=== PATIENT | female | born 1985 | race Caucasian/White ===

== ENCOUNTER 2020-09-18 11:54 | Inpatient (IN) ==
[2020-09-18] MEDS ORDERED: OXYTOCIN 30 UNITS/500 ML BAG IV PRN ×3 (12:43→18:46)
[2020-09-18] MEDS: LACTATED RINGER'S 1,000 ML IV PRN ×2 (12:50→13:47)
--- NOTE | 2020-09-18 13:10 | History & Physical Report ---
Date of Service September 18, 2020 Assessment & Plan (1) Uterine contractions at greater than 20 weeks of gestation: 34 yo at 40.4 wks with contractions, cervical change VSS afebrile FHR reassuring GBS neg, Coronavirus neg Plan to admit, monitor, epidural for pain Admission and Anticipated Discharge Date Admission Date: September 18, 2020 History of Present Illness Chief Complaint: Contractions Primary Care Provider: NO PCP Patient is a 34 yo at 40.4 wks who has been feeling ctxs since 230 am, got closer and regular, every 2-5 minutes and more painful. No LOF/VB FM's GBS neg Coronavirus neg Her has been complicated by GDMA1, diet controlled Chronic migraines, nerve block injections q 3 months Allergies Allergy/AdvReac Type Severity Reaction Status Date / Time No Known Drug Allergies Allergy Unknown Verified 09/18/20 05:15 Home Medications Medication Instructions Recorded Confirmed Type ondansetron HCl 8 mg tablet 8 mg PO DAILY PRN tab 11/04/19 09/18/20 History prenat.vits,rafy,hjg-[id number]-nfzla 1 tab PO DAILY 05/04/20 09/18/20 History multivitamin with iron 1 tab PO DAILY 08/04/20 09/18/20 History ferrous sulfate [Iron (ferrous 325 mg PO BID 09/18/20 09/18/20 History sulfate)] Patient History Medical History History of chicken pox History of syncope Migraines Surgical History H/O oral surgery History of surgical procedure bilateral supraorbital, supratrochlear, auriculotemporal, lesser occipital and greater occipital nerve block S/P breast reconstruction, bilateral with implant prosthesis Family History Grandfather (Paternal) Colorectal cancer Mother Osteopenia Pure hypercholesterolemia Social History Smoking Status: Never smoker Second Hand Exposure: No; Hx Alcohol Use: No Hx Substance Use: No Preferred Language: Icelandic Communication Ability: Effective Aging Box Hand Required: No Beliefs That Will Affect Care: None marital status: Current Living Situation: Spouse current occupational status: other current occupation: self employed Other Information That Helps Us Care for You: No Feels Safe at Home: Yes Safety Concerns: Feels Safe At This Time Assistive Devices: None [employer] PERSON History No h/o STD's Review of Systems All systems reviewed & are unremarkable except as noted in HPI & below Physical Exam Constitutional: WD/WN, vitals as above well developed, well nourished and + acute distress (with ctxs) Genitourinary: normal external appearance OB Exam Abdomen: + vertex Manual OB Exam: + cervical dilation 4 cm and + cervical effacement 80% OB Exam Monitor Tracing: + category I Results & Data ([facility]) Vital Signs (Past 12 Hours) Vital Signs Temp Pulse Resp BP 09/18/20 12:18 36.9 C 106 H 18 131/78 09/18/20 12:11 106 H 131/78
[2020-09-18 13:22] LABS: Hematocrit (blood only) 36.2 % (37-47); Hemoglobin 11.9 g/dL (12.0-16.0); Mean Corpuscular Hemoglobin 29.8 pg (25-34); Mean Corpuscular Hgb Conc 32.9 g/dL (32-36); Mean Corpuscular Volume 90.5 fL (80-100); Mean Platelet Volume 10.6 fL (7.4-10.4); Platelet Count 339 K/uL (130-400); RDW Standard Deviation 50.2 fL (36.4-46.3); White Blood Count 10.11 K/uL (4.8-10.8)
[2020-09-18] MEDS ORDERED: SODIUM CHLORIDE 0.9% INJ 10 ML VIAL ONE (13:51)
[2020-09-18] MEDS ORDERED: fentaNYL 2MCG/ML ROPIVACAINE 1.25MG/ML 100 ML BAG EPI ONE (13:51)
[2020-09-18] MEDS ORDERED: BUPIVACAINE 0.25% 30 ML VIAL ONE (13:51)
[2020-09-18] MEDS ORDERED: fentaNYL citrate 100 MCG/2 ML VIAL ONE (13:51)
[2020-09-18] MEDS ORDERED: ePHEDrine sulfate 50 MG/ML AMP ONE (13:51)
--- NOTE | 2020-09-18 14:17 | Anesthesiology Consultation ---
Date of Service September 18, 2020 Assessment & Plan (1) Encounter for pre-operative examination: Chart Review Chart Review: Acceptable Risk for Surgery and Patient NOT seen in Pre Admission Testing Consults Requested none ASA ASA2 Proposed Anesthesia Anesthesia Type: Labor Epidural Risk / Benefits Reviewed With: PT / POA / Parent / Guardian, Accepts Plan and Informed Consent Obtained History Height/Weight Height: 5 ft 5 in Weight: 94.347 kg Allergies Allergy/AdvReac Type Severity Reaction Status Date / Time No Known Drug Allergies Allergy Unknown Verified 09/18/20 05:15 Medications Home Medications Medication Instructions Recorded Confirmed Last Taken ondansetron HCl 8 mg tablet 8 mg PO DAILY PRN tab 11/04/19 09/18/20 Unknown prenat.vits,rafy,esr-oens-dbeqj 1 tab PO DAILY 05/04/20 09/18/20 09/17/20 15:00 multivitamin with iron 1 tab PO DAILY 08/04/20 09/18/20 Unknown ferrous sulfate [Iron (ferrous 325 mg PO BID 09/18/20 09/18/20 09/17/20 21:00 sulfate)] Active Medications Generic Name Dose Route Start Last Admin Trade Name Freq PRN Reason Stop Dose Admin Lactated Ringer's 1,000 mls @ 125 mls/hr 09/18/20 12:43 09/18/20 13:47 Lr IV 09/20/20 12:42 125 mls/hr .Q8H PRN Administration L&D Protocol Protocol NPO Date Last Intake of Fluids: 09/18/20 Time Last Intake of Fluids: 14:16 Past Medical History Medical History History of chicken pox History of syncope Migraines Exercise / Class Metabolic Activity II 4-5 Yardwork/Stairs/Walk up hill Past Family History Family History Grandfather (Paternal) Colorectal cancer Mother Osteopenia Pure hypercholesterolemia Past Surgical History Surgical History H/O oral surgery History of surgical procedure bilateral supraorbital, supratrochlear, auriculotemporal, lesser occipital and greater occipital nerve block S/P breast reconstruction, bilateral with implant prosthesis Social History Smoking Status: Never smoker Hx Alcohol Use: No Hx Substance Use: No substance use type: does not use Physical Exam Vital Signs Last Vital Signs Temp 36.9 C 09/18/20 12:18 Pulse 103 H 09/18/20 14:07 Resp 18 09/18/20 12:18 BP 130/84 09/18/20 14:07 Testing Laboratory Results 09/18/20 13:11
[2020-09-18] MEDS ORDERED: NALOXONE HCL 1 MG in SODIUM CHLORIDE 0.9% 1000ML 1,000 ML IV PRN (15:07)
[2020-09-18] MEDS ORDERED: ONDANSETRON INJ 2 MG/ML 2 ML VIAL IV PRN (15:07)
[2020-09-18] MEDS ORDERED: diphenhydrAMINE 50 MG/ML VIAL IV PRN (15:07)
[2020-09-18] MEDS ORDERED: NALOXONE HCL 0.4 MG/1 ML VIAL/CARP IV PRN (15:07)
[2020-09-18] MEDS ORDERED: fentaNYL 2MCG/ML ROPIVACAINE 1.25MG/ML 100 ML BAG EPI PRN (15:07)
[2020-09-18] MEDS ORDERED: ePHEDrine sulfate 50 MG/ML AMP IV PRN (15:07)
[2020-09-18] MEDS ORDERED: CALCIUM CARBONATE 500 MG CHEWABLE TAB PO PRN (16:24)
[2020-09-18] MEDS ORDERED: MINERAL OIL 30 ML UDC ONE (18:04)
[2020-09-18] MEDS ORDERED: LIDOCAINE HCL 1% 20 ML VIAL ONE ×2 (18:16→18:25)
[2020-09-18] MEDS ORDERED: ERYTHROMYCIN OP OINT 1 GM PKT ONE (18:26)
[2020-09-18] MEDS ORDERED: ceFAZolin 2000MG 2,000 MG/15 ML SYR IV STA (18:28)
[2020-09-18] MEDS ORDERED: bisacodyL 10 MG SUPP PR PRN (18:46)
[2020-09-18] MEDS ORDERED: BENZOCAINE 20% AER SPR 82.5 GM CAN EXT PRN (18:46)
[2020-09-18] MEDS ORDERED: HYDROCORTISONE ACETATE 25 MG SUPP PR PRN (18:46)
[2020-09-18] MEDS ORDERED: DIPHTHERIA/TETANUS/PERTUSSIS 0.5 ML SYR/VIAL IM ONE (18:46)
[2020-09-18] MEDS ORDERED: ACETAMINOPHEN 325 MG TAB PO PRN (18:46)
[2020-09-18] MEDS ORDERED: MEASLES, MUMPS & RUBELLA VIRUS VIAL SQ ONE (18:46)
[2020-09-18] MEDS ORDERED: SUPERCREAM 0.870% 15 GM JAR EXT PRN (18:46)
[2020-09-18] MEDS ORDERED: oxyCODONE/ACETAMINOPHEN 5mg/325mg TAB PO PRN (18:46)
[2020-09-18] MEDS ORDERED: LACTATED RINGER'S 1,000 ML IV SCH (19:00)
--- NOTE | 2020-09-18 20:27 | Anesthesia Procedure Note ---
Date of Service September 18, 2020 Anesthesia Post Epidural Note Vital Signs Vital Signs: Temp Pulse Resp BP Pulse Ox 36.9 C 123 H 18 127/63 98 09/18/20 18:45 09/18/20 20:16 09/18/20 20:16 09/18/20 20:16 09/18/20 18:49 Notes Mental Status: alert / awake / arousable and participated in evaluation Nausea / Vomiting: adequately controlled Pain: adequately controlled Airway Patency, RR, SpO2: stable & adequate BP & HR: stable & adequate Hydration State: stable & adequate Neuraxial Anesthesia: was administered and sensory block is resolving Anesthetic Complications: no major complications apparent and Pt Satisfied with anesthetic care Epidural: Removed without complications and With tip intact
[2020-09-18] MEDS: IBUPROFEN 600 MG TAB PO PRN (21:37)
[2020-09-18] MEDS: DOCUSATE SODIUM 100 MG CAP PO SCH (21:38)
--- NOTE | 2020-09-18 23:12 | Delivery Summary ---
DATE OF OPERATION: 09/18/2020 TIME OF DELIVERY OF BABY: 1807 p.m. DETAILS OF DELIVERY: The patient was found to be fully dilated and desired to push. She pushed for about 18 minutes and delivered the head without difficulty. Shoulders were delivered with minimal traction. Baby was handed to the mother where mouth and nose were suctioned. Cord was clamped x2 and cut at 1 minute delay. Cord blood was obtained. Vagina and perineum were checked for lacerations. There were second-degree vaginal laceration in the bilateral sulcus area as well as a third-degree perineal laceration. It was confirmed with rectal exam. Gloves were changed. The external sphincter muscles of anus were held with Allis clamps brought to the midline and this was repaired with [id number] stitches and U-type sutures x3 with 2-0 Vicryl. Rectal exam was repeated. Excellent sphincter tone was noted and no sutures were felt. Gloves were changed and then vaginal sulcus tear were repaired on both sides with 2-0 Vicryl in a running fashion bringing the vaginal mucosa in the midline and the perineal body muscles and bulbocavernosus muscles in a continuous fashion, skin in a subcuticular fashion. Excellent hemostasis was achieved. Rectal exam was repeated and excellent sphincter tone was noted and no sutures were felt. The placenta was found to be in the vagina, delivered spontaneous, was intact and complete. Uterus was explored, found to be empty. Lower segment was cleared of all clots and debris. EBL was 250 mL. Mom and baby tolerated the procedure well. Sponge, lap, needle count was correct x2. Baby was a viable male infant, Apgars 8/9, weight was 3233 gr. No complications happened and I was present during whole procedure. The patient was given 2 grams of cefazolin during third-degree repair. I attest to the content of the Intraoperative Record and any orders documented therein. Any exceptions are noted below. MTDD
[2020-09-19] MEDS: IBUPROFEN 600 MG TAB PO PRN ×3 (01:05→18:03)
[2020-09-19 06:21] LABS: Hematocrit (blood only) 33.3 % (37-47); Hemoglobin 10.8 g/dL (12.0-16.0); Mean Corpuscular Hemoglobin 29.2 pg (25-34); Mean Corpuscular Hgb Conc 32.4 g/dL (32-36); Mean Platelet Volume 10.2 fL (7.4-10.4); Platelet Count 286 K/uL (130-400); RDW Coefficient of Variation 15.2 % (11.5-14.5); RDW Standard Deviation 50.1 fL (36.4-46.3); White Blood Count 12.79 K/uL (4.8-10.8)
[2020-09-19] MEDS: FERROUS SULFATE 325 MG TAB PO SCH (07:34)
[2020-09-19] MEDS: DOCUSATE SODIUM 100 MG CAP PO SCH ×2 (07:34→20:54)
[2020-09-19] MEDS: PRENATAL VITAMIN 1 TAB PO SCH (07:34)
[2020-09-19] MEDS: POLYETHYLENE (MIRALAX) 17 GM PACK PO SCH (08:59)
--- NOTE | 2020-09-19 11:16 | Obstetrical Progress Note ---
Date of Service September 19, 2020 Assessment & Plan Admission and Anticipated Discharge Date Admission Date: September 18, 2020 Review of Systems Review of Systems: All systems reviewed & are unremarkable except as noted in HPI & below Physical Exam Constitutional: WD/WN, vitals as above comfortable passing gas tolerating diet no edema neg Li's tent d/c in AM Results & Data ([facility]) Vital Signs (Past 12 Hours) Vital Signs Temp Pulse Resp BP Pulse Ox 09/19/20 07:35 36.8 C 91 H 18 112/67 97 09/19/20 04:00 36.8 C 89 18 119/77 09/18/20 23:35 36.8 C 88 18 118/75
[2020-09-19] MEDS ORDERED: bisacodyL 5 MG TABEC PO SCH (20:00)
[2020-09-20 06:38] LABS: Hematocrit (blood only) 34.9 % (37-47)
--- NOTE | 2020-09-20 08:17 | Obstetrical Progress Note ---
Date of Service September 20, 2020 Assessment & Plan Admission and Anticipated Discharge Date Admission Date: September 18, 2020 Subjective Patient is seen and examined. She feels well, no complaints. Ambulating without dizziness Voiding without difficulty BM+, soft Tolerating regular diet with out N&V Bleeding is minimal No fever/ chills/ CP/ SOB/ N&V/ Leg pain Breast feeding without problems Vital Signs Temp Pulse Resp BP Pulse Ox 09/19/20 23:55 36.6 C 108 H 18 114/75 09/19/20 15:24 36.8 C 99 H 18 127/83 09/19/20 12:50 36.6 C 92 H 16 122/86 98 Lab Results 09/18/20 09/18/20 09/18/20 Range/Units 13:11 15:33 17:45 WBC 10.11 (4.8-10.8) K/uL RBC 4.00 L (4.2-5.4) M/uL Hgb 11.9 L (12.0-16.0) g/dL Hct 36.2 L (37-47) % MCV 90.5 (80-100) fL MCH 29.8 (25-34) pg MCHC 32.9 (32-36) g/dL RDW Std Deviation 50.2 H (36.4-46.3) fL RDW Coeff of Tom 15.0 H (11.5-14.5) % Plt Count 339 (130-400) K/uL MPV 10.6 H (7.4-10.4) fL POC Glucose 73 75 (70-99) mg/dl 09/19/20 09/20/20 Range/Units 06:02 06:15 WBC 12.79 H (4.8-10.8) K/uL RBC 3.70 L (4.2-5.4) M/uL Hgb 10.8 L 11.0 L (12.0-16.0) g/dL Hct 33.3 L 34.9 L (37-47) % MCV 90.0 (80-100) fL MCH 29.2 (25-34) pg MCHC 32.4 (32-36) g/dL RDW Std Deviation 50.1 H (36.4-46.3) fL RDW Coeff of Tom 15.2 H (11.5-14.5) % Plt Count 286 (130-400) K/uL MPV 10.2 (7.4-10.4) fL POC Glucose (70-99) mg/dl PE: General: Alert, orientedx3, NAD Abd: soft, NT, fundus firm, below Umbilicus Perineum intact, Lochia rubra minimal Ext; NT, no edema AP: 35 yo s/p , ppd# 2 VSS Afebrile doing well Continue routine care All questions were answered Discussed when to call D/C home , f/u in office Results & Data ([facility]) Vital Signs (Past 12 Hours) Vital Signs Temp Pulse Resp BP 09/19/20 23:55 36.6 C 108 H 18 114/75
[2020-09-20] MEDS: PRENATAL VITAMIN 1 TAB PO SCH (08:30)
[2020-09-20] MEDS: DOCUSATE SODIUM 100 MG CAP PO SCH (08:30)
[2020-09-20] MEDS: FERROUS SULFATE 325 MG TAB PO SCH (08:30)
[2020-09-20] MEDS: IBUPROFEN 600 MG TAB PO PRN (08:30)
[2020-09-20] MEDS: POLYETHYLENE (MIRALAX) 17 GM PACK PO SCH (09:38)
== END 2020-09-20 12:00 | disposition home or self-care (01) | DRG 768 ==
LOC: OPB 11:54 → 4S1 11:56 → 4S2 21:30

== ENCOUNTER 2022-05-10 08:04 | Inpatient (IN) ==
[2022-05-10] MEDS ORDERED: OXYTOCIN 30 UNITS/500 ML BAG IV PRN (15:53)
[2022-05-10 16:22] LABS: Hematocrit (blood only) 35.7 % (34.1-44.9); Mean Corpuscular Hgb Conc 33.6 g/dL (32.0-36.0); Mean Corpuscular Volume 89.3 fL (80.0-100.0); Mean Platelet Volume 9.7 fL (9.4-12.3); Platelet Count 288 K/uL (130-400); RDW Coefficient of Variation 15.8 % (11.5-14.5); White Blood Count 7.96 K/ul (4.8-10.8)
[2022-05-10] MEDS ORDERED: DINOPROSTONE 10 MG INSERT PV ONE (17:12)
--- NOTE | 2022-05-10 17:19 | History & Physical Report ---
Date of Service May 10, 2022 Assessment & Plan (1) Post-dates : Plan: Cervidil for cervical ripening Admission and Anticipated Discharge Date Admission Date: May 10, 2022 History of Present Illness Chief Complaint: induction of labor Primary Care Provider: AMY PCP 36 F P1001 at 41 weeks admitted for induction of labor for post-dates . GBS is negative. Covid is negative. Allergies Allergy/AdvReac Type Severity Reaction Status Date / Time No Known Drug Allergies Allergy Unknown Verified 04/10/22 09:48 Home Medications Medication Instructions Recorded Confirmed Type prenat.vits,rafy,ecw-ivms-cvsvm 1 tab PO DAILY 05/04/20 05/10/22 History ferrous sulfate 325 mg (65 mg 325 mg PO BID 09/18/20 05/10/22 History iron) tablet (Iron (ferrous sulfate)) acyclovir 400 mg tablet 400 mg PO BID 04/10/22 05/10/22 History Patient History Medical History Advanced maternal age (AMA) in Anemia Iron infusions during the Chronic migraine Dizziness Encounter for routine gynecological examination with Papanicolaou smear of cervix External thrombosed hemorrhoids Gestational diabetes Patient reports that she is NOT GDM with this but did have it with her last . History of chicken pox History of syncope HSV (herpes simplex virus) infection Migraines Nausea Obesity Vasovagal syncope Before anemia treatments. 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 Beliefs That Will Affect Care: None marital status: marital status details: Bello Pelaez Current Living Situation: Spouse current occupational status: unemployed and other current occupation: self employed How many Children do You have: 1 Other Information That Helps Us Care for You: No Feels Safe at Home: Yes Safety Concerns: Feels Safe At This Time during the past year weight has: remained stable Assistive Devices: None OB History x1 ENDOCRINOLOGY NURSE History history of Herpes on Valtrex Review of Systems All systems reviewed & are unremarkable except as noted in HPI & below Physical Exam Constitutional: WD/WN, vitals as above Eyes: PERRL, conjunctivae normal, anicteric sclerae Neck: normal visual inspection Respiratory: normal respiratory effort, lungs clear to auscultation Cardiovascular: Rate/Rhythm: regular rate Gastrointestinal (Abdomen): normal bowel sounds, soft, nontender, no hepatosplenomegaly Skin: no rashes, warm and dry Neurologic: patellar DTR's 2+ bilat, sensation intact Psychiatric: A+Ox3, euthymic affect Genitourinary: normal external appearance Manual OB Exam: + cervical dilation 1 cm, + cervical effacement 50% and + station high OB Exam Monitor Tracing: + external FHT monitor used, + external uterine monitor used, + category I and + normal FHT variability no external lesions Results & Data ([facility]) Vital Signs (Past 12 Hours) Vital Signs Temp Pulse Resp BP 05/10/22 15:28 36.5 C 18 05/10/22 15:22 36.5 C 120 H 20 122/89 Laboratory Results 05/10/22 05/10/22 16:05 16:05 WBC 7.96 RBC 4.00 Hgb 12.0 Hct 35.7 MCV 89.3 MCH 30.0 MCHC 33.6 RDW Std Deviation 52.0 H RDW Coeff of Tom 15.8 H Plt Count 288 MPV 9.7 Blood Type O Positive Antibody Screen NEGATIVE Code Status & VTE Plan VTE Prophylaxis Plan VTE Prophylaxis will be ordered: No Monitoring External Monitor Cat 1
--- NOTE | 2022-05-10 17:36 | Labor Progress Brief Note ---
Date of Service May 10, 2022 Assessment & Plan Admission and Anticipated Discharge Date Admission Date: May 10, 2022 Physical Exam Genitourinary: OB Exam Monitor Tracing: + external FHT monitor used, + external uterine monitor used, + category I and + normal FHT variability Cervidil 10 mg placed vaginally Results & Data ([facility]) Vital Signs (Past 12 Hours) Vital Signs Temp Pulse Resp BP 05/10/22 15:28 36.5 C 18 05/10/22 15:22 36.5 C 120 H 20 122/89
[2022-05-10] MEDS ORDERED: BUTORPHANOL TARTRATE 1 MG/ML VIAL IV PRN (18:56)
[2022-05-11] MEDS ORDERED: ePHEDrine sulfate 50 MG/ML AMP ONE (02:59)
[2022-05-11] MEDS: LACTATED RINGER'S 1,000 ML IV PRN ×2 (02:59→03:53)
[2022-05-11] MEDS ORDERED: BUPIVACAINE 0.25% 30 ML VIAL ONE (03:00)
[2022-05-11] MEDS ORDERED: SODIUM CHLORIDE 0.9% INJ 10 ML VIAL ONE (03:00)
[2022-05-11] MEDS ORDERED: fentaNYL citrate 100 MCG/2 ML VIAL ONE (03:00)
[2022-05-11] MEDS ORDERED: LIDOCAINE 2%/EPINEPHRINE 1:200,000 20 ML SDV ONE (03:00)
[2022-05-11] MEDS ORDERED: fentaNYL 2MCG/ML ROPIVACAINE 1.25MG/ML 100 ML BAG EPI ONE (03:01)
--- NOTE | 2022-05-11 03:59 | Anesthesiology Consultation ---
Date of Service May 11, 2022 Assessment & Plan Chart Review Chart Review: Acceptable Risk for Labor Epidural Consults Requested none History Height/Weight Height: 5 ft 5 in Weight: 105.233 kg Allergies Allergy/AdvReac Type Severity Reaction Status Date / Time No Known Drug Allergies Allergy Unknown Verified 04/10/22 09:48 Medications Home Medications Medication Instructions Recorded Confirmed Last Taken prenat.vits,rafy,qga-cvmj-afaee 1 tab PO DAILY 05/04/20 05/10/22 05/10/22 ferrous sulfate 325 mg (65 mg 325 mg PO BID 09/18/20 05/10/22 05/10/22 iron) tablet (Iron (ferrous sulfate)) acyclovir 400 mg tablet 400 mg PO BID 04/10/22 05/10/22 05/10/22 Active Medications Generic Name Dose Route Start Last Admin Trade Name Freq PRN Reason Stop Dose Admin Lactated Ringer's 1,000 mls @ 125 mls/hr 05/10/22 15:53 05/11/22 03:53 Lr IV 05/12/22 15:52 125 mls/hr .Q8H PRN Administration L&D Protocol Protocol Past Medical History Medical History (Updated 05/10/22 @ 17:48 by Yadi Ramon RN) Advanced maternal age (AMA) in Anemia Iron infusions during the Chronic migraine The patient reports that migraines stopped after first . Dizziness Encounter for routine gynecological examination with Papanicolaou smear of cervix External thrombosed hemorrhoids Reports that she currently has hemorrhoids that do not bother her. Gestational diabetes Patient reports that she is NOT GDM with this but did have it with her last . History of chicken pox History of syncope HSV (herpes simplex virus) infection Patient reports last outbreak was prior to this ; unsure of time frame. It was noted to be external. No outbreaks during this . Migraines Nausea Obesity Vasovagal syncope Before anemia treatments she 'blacked out' multiple times during the . No episodes recently. Past Family History Family History Grandfather (Paternal) Colorectal cancer Mother Osteopenia Pure hypercholesterolemia Past Surgical History Surgical History (Updated 05/10/22 @ 17:48 by Yadi Ramon RN) H/O oral surgery History of surgical procedure bilateral supraorbital, supratrochlear, auriculotemporal, lesser occipital and greater occipital nerve block S/P breast reconstruction, bilateral with implant prosthesis at 20 years old Social History Smoking Status: Never smoker Hx Alcohol Use: No Hx Substance Use: No substance use type: does not use Physical Exam Vital Signs Last Vital Signs Temp 36.8 C 05/10/22 21:45 Pulse 114 H 05/11/22 03:58 Resp 18 05/10/22 21:45 BP 109/71 05/11/22 03:58 Pulse Ox 98 05/11/22 03:57 Testing Laboratory Results 05/10/22 16:05 Blood Type O Positive 05/10/22 16:05 Antibody Screen NEGATIVE 05/10/22 16:05
[2022-05-11] MEDS ORDERED: fentaNYL 2MCG/ML ROPIVACAINE 1.25MG/ML 100 ML BAG EPI PRN (04:01)
[2022-05-11] MEDS ORDERED: NALOXONE HCL 0.4 MG/1 ML VIAL/CARP IV PRN (04:01)
[2022-05-11] MEDS ORDERED: NALOXONE HCL 1 MG in SODIUM CHLORIDE 0.9% 1000ML 1,000 ML IV PRN (04:01)
[2022-05-11] MEDS ORDERED: NALBUPHINE HCL INJ 10 MG/ML AMP IV PRN (04:01)
[2022-05-11] MEDS ORDERED: ePHEDrine sulfate 50 MG/ML AMP IV PRN (04:01)
[2022-05-11] MEDS ORDERED: diphenhydrAMINE 50 MG/ML VIAL IV PRN (04:01)
--- NOTE | 2022-05-11 07:45 | Obstetrical Progress Note ---
Date of Service May 11, 2022 Assessment & Plan Admission and Anticipated Discharge Date Admission Date: May 10, 2022 Subjective Patient is seen and examined Reviewed her records and confirmed with her. h/o genital HSV, no outbreaks for years She has been on suppressive antiviral therapy. No symptoms. She was admitted last night for IOL for postdates Received cervidil and then went into active labor Has epidural VE: 10/ 100%/ +3 FHR had been categ I, now having early decels with ctxs Plan to start pushing Continue to monitor closely Results & Data ([facility]) Vital Signs (Past 12 Hours) Vital Signs Temp Pulse Resp BP Pulse Ox 05/10/22 21:45 36.8 C 18 05/11/22 07:37 136 H 97 05/11/22 07:38 144 H 132/63 05/11/22 07:32 115 H 98 05/11/22 07:27 127 H 98 05/11/22 07:22 133 H 122/66 99 05/11/22 07:17 127 H 98 05/11/22 07:14 126 H 133/73 05/11/22 07:12 122 H 98 05/11/22 07:07 119 H 130/81 98 05/11/22 07:02 118 H 97 05/11/22 06:57 107 H 97 05/11/22 06:52 111 H 128/81 98 05/11/22 06:47 121 H 96 05/11/22 06:42 107 H 98 05/11/22 06:37 106 H 133/77 97 05/11/22 06:32 114 H 97 05/11/22 06:27 122 H 98 05/11/22 06:22 104 H 117/74 96 05/11/22 06:17 128 H 98 05/11/22 06:12 126 H 98 05/11/22 06:04 18 05/11/22 06:04 37.0 C 18 05/11/22 06:07 98 05/11/22 06:07 128 H 05/11/22 06:07 117 H 118/72 05/11/22 06:02 141 H 99 05/11/22 05:57 117 H 99 05/11/22 05:52 74 98 05/11/22 05:47 93 H 99 05/11/22 05:42 102 H 97 05/11/22 05:37 97 05/11/22 05:37 100 H 05/11/22 05:37 104 H 99/58 L 05/11/22 05:32 93 H 97 05/11/22 05:27 99 H 98 05/11/22 05:23 93 H 110/56 L 05/11/22 05:22 89 97 05/11/22 05:17 92 H 97 05/11/22 05:12 107 H 99 05/11/22 05:07 98 H 99 05/11/22 05:08 102 H 18 97/53 L 05/11/22 05:02 114 H 97 05/11/22 04:57 116 H 95 05/11/22 04:52 110 H 96 05/11/22 04:53 109 H 120/70 05/11/22 04:47 100 H 96 05/11/22 04:42 111 H 97 05/11/22 04:37 96 05/11/22 04:37 137 H 05/11/22 04:37 123 H 98/61 L 05/11/22 04:32 129 H 95 05/11/22 04:27 144 H 97 05/11/22 04:24 137 H 94/55 L 05/11/22 04:22 122 H 83/45 L 100 05/11/22 04:17 130 H 97 05/11/22 04:15 16 05/11/22 04:15 16 05/11/22 04:12 137 H 97 05/11/22 04:07 146 H 99 05/11/22 04:06 120 H 119/59 L 05/11/22 04:02 126 H 97 05/11/22 03:50 22 05/11/22 03:50 22 05/11/22 03:55 18 05/11/22 03:55 18 05/11/22 04:00 118 H 18 104/65 05/11/22 03:57 118 H 98 05/11/22 03:58 114 H 109/71 05/11/22 03:56 118 H 113/71 05/11/22 03:53 130 H 112/74 05/11/22 03:52 124 H 20 98 05/11/22 03:47 123 H 100 05/11/22 03:45 110 H 137/81 05/11/22 03:42 113 H 99 05/11/22 03:37 120 H 98 05/11/22 03:32 113 H 98 05/11/22 03:27 114 H 99 05/11/22 03:22 120 H 98 05/11/22 03:17 119 H 99 05/11/22 03:12 118 H 98 05/11/22 03:05 107 H 98 05/10/22 21:54 125 H 113/87 05/10/22 20:39 36.6 C 112 H 20 141/81 H
[2022-05-11] MEDS ORDERED: HYDROCORTISONE ACETATE 25 MG SUPP PR PRN (08:14)
[2022-05-11] MEDS ORDERED: ACETAMINOPHEN 325 MG TAB PO PRN (08:14)
[2022-05-11] MEDS ORDERED: DIPHTHERIA/TETANUS/PERTUSSIS 0.5 ML SYR/VIAL IM ONE (08:14)
[2022-05-11] MEDS ORDERED: OXYTOCIN 30 UNITS/500 ML BAG IV PRN (08:14)
[2022-05-11] MEDS ORDERED: BENZOCAINE 20% AER SPR 82.5 GM CAN EXT PRN (08:14)
[2022-05-11] MEDS ORDERED: bisacodyL 10 MG SUPP PR PRN (08:14)
[2022-05-11] MEDS ORDERED: MEASLES, MUMPS & RUBELLA VIRUS VIAL SQ ONE (08:14)
[2022-05-11] MEDS ORDERED: oxyCODONE/ACETAMINOPHEN 5mg/325mg TAB PO PRN (08:14)
[2022-05-11] MEDS ORDERED: PRENATAL VITAMIN 1 TAB ONE (09:37)
--- NOTE | 2022-05-11 10:22 | Anesthesia Procedure Note ---
Date of Service May 11, 2022 Anesthesia Post Epidural Note Vital Signs Vital Signs: Temp Pulse Resp BP Pulse Ox 36.8 C 112 H 16 116/66 98 05/11/22 08:15 05/11/22 10:07 05/11/22 08:15 05/11/22 10:07 05/11/22 08:15 Pain Intensity Abdomen: Pain Intensity: 0 Notes Mental Status: alert / awake / arousable and participated in evaluation Nausea / Vomiting: adequately controlled Pain: adequately controlled Airway Patency, RR, SpO2: stable & adequate BP & HR: stable & adequate Hydration State: stable & adequate Anesthetic Complications: no major complications apparent and Pt Satisfied with anesthetic care Epidural: Removed without complications and With tip intact
--- NOTE | 2022-05-11 12:00 | Delivery Summary ---
DATE OF DELIVERY: 05/11/2022. TIME: 07:49 a.m. DETAILS OF DELIVERY: The patient was found to fully dilated and desired to push. She pushed for about 11 minutes and delivered the head without difficulty. Shoulders were delivered with minimal traction. Baby was handed off to the mother where mouth and nose were suctioned and cord was clamped x2 and cut at 1 minute delay. Baby was vigorously moving and crying at that point. Then, the placenta was found to be in the vagina, delivered spontaneous as intact and complete. Uterus was explored and found to be empty. Lower segment was cleared of all clots and debris. Fundus was firm. Then, the vagina and perineum were checked for lacerations. There was only a small first-degree perineal laceration, which was repaired with 2-0 Vicryl. Excellent hemostasis was achieved. Rest of the vagina and labia were intact. Fundus was firm. EBL was 50 mL. Mom and baby tolerated the procedure well. Sponge, lap, needle and instrument count was correct x2. Baby was a viable female infant, Apgars 8/9, weight is 8 lb 4 oz. No complications happened and I was present during whole procedure. Job ID: [id number] [facility]
[2022-05-11] MEDS ORDERED: POLYETHYLENE (MIRALAX) 17 GM PACK PO PRN (17:10)
[2022-05-11] MEDS: DOCUSATE SODIUM 100 MG CAP PO SCH (21:10)
[2022-05-12] MEDS: IBUPROFEN 600 MG TAB PO PRN ×2 (00:22→05:07)
[2022-05-12] MEDS ORDERED: PRENATAL VITAMIN 1 TAB PO SCH (08:00)
[2022-05-12] MEDS ORDERED: FERROUS SULFATE 325 MG TAB PO SCH (08:00)
[2022-05-12 08:19] LABS: Hematocrit (blood only) 33.2 % (34.1-44.9); Hemoglobin 10.6 g/dl (12.0-16.0); Mean Corpuscular Hemoglobin 29.9 pg (25.0-34.0); Mean Corpuscular Hgb Conc 31.9 g/dL (32.0-36.0); Mean Corpuscular Volume 93.5 fL (80.0-100.0); Mean Platelet Volume 9.9 fL (9.4-12.3); Platelet Count 255 K/uL (130-400); RDW Standard Deviation 54.4 fL (36.4-46.3); Red Blood Count 3.55 M/uL (3.93-5.22); White Blood Count 10.18 K/ul (4.8-10.8)
[2022-05-12] MEDS: DOCUSATE SODIUM 100 MG CAP PO SCH (08:50)
--- NOTE | 2022-05-12 09:52 | Obstetrical Progress Note ---
Date of Service May 12, 2022 Subjective Ambulation: ambulating normally Voiding: no voiding problems Passing Gas:: Yes Diet Tolerance:: regular diet Lochia:: Small Feeding Type:: breast feeding Current Pain Level(1-10): 0 doing well Physical Exam Constitutional WD/WN, vitals as above Gastrointestinal (Abdomen) Inspection/Auscultation: abdomen normal to inspection abdomen soft and non-tender. fundus firm. neg Honman's Skin no rashes, warm and dry Neurologic patellar DTR's 2+ bilat, sensation intact Results & Data ([facility]) Vital Signs (Past 12 Hours) Vital Signs Temp Pulse Resp BP O2 Del Method 05/12/22 07:30 36.6 C 97 H 18 118/87 Room Air 05/12/22 04:00 36.9 C 91 H 16 119/81 05/12/22 00:00 36.9 C 91 H 18 118/71 Laboratory Results 05/10/22 05/10/22 05/12/22 16:05 16:05 08:00 WBC 7.96 10.18 RBC 4.00 3.55 L Hgb 12.0 10.6 L Hct 35.7 33.2 L MCV 89.3 93.5 MCH 30.0 29.9 MCHC 33.6 31.9 L RDW Std Deviation 52.0 H 54.4 H RDW Coeff of Tom 15.8 H 16.0 H Plt Count 288 255 MPV 9.7 9.9 Blood Type O Positive Antibody Screen NEGATIVE
[2022-05-12] MEDS ORDERED: bisacodyL 5 MG TABEC PO SCH (20:00)
== END 2022-05-12 11:50 | disposition home or self-care (01) | DRG 806 ==
LOC: 4S1 15:04 → 4E2 05-11 11:43